=== PATIENT | male | born 1925 | race Caucasian/White ===

== ENCOUNTER 2017-01-07 16:48 | Emergency (ER) | payer MEDICARE ==
[~2017-01-07] VITALS: Ht 175.3 cm; Wt 71.4 kg
[~2017-01-07 16:48] MED LIST: ALBU8.5H2 INHALATION; ASPI-973 PO; FERR325C PO; FINA5TAB9 PO; INSU100I13 SUBQ; LEVO175T5 PO; OMEP20CA11 PO; TRAM50TA2 PO
[2017-01-07 16:52] VITALS: BP 148/68; PULSE 81; RESP 15; O2SAT 98
--- NOTE | 2017-01-07 17:00 | ED.REPORT ---
HPI-General Illness Date of Service Jan 07, 2017 ED Provider: Dolores Tello MD A deaf, demented 89 year old male with a history of diabetes, arthritis, asthma , GERD, 3 herniated discs, chronic back pain, presents to the ED complaining of possible UTI. Per nurse, the patient's reports that the patient has prostate enlargement and has been urinating frequently. The talked with a consulting nurse who told her that the patient was too far into trouble to be treated at a walk-in clinic, and needed emergency treatment. Per , the patient often complains about their chronic pain and talks about stories that are not true and has recently been talking about witches. Recently, he has been complaining about his chronic pain a lot. The patient recently asked to have a whole body XRay because of the intensity of his chronic pain. The patient has 3 herniated discs and has been told by doctors that here are not treatments available for them. Surgical history includes appendectomy, shoulder surgery, and cancerous lump removal from neck. Patient is also accompanied by daughter and son-in-law. Patient's demented state makes history intake difficult. Nursing Notes Stated Complaint: DEMENTIA Chief Complaint: General Complaint Nursing Notes Reviewed: Yes Allergies: Coded Allergies: Penicillins (Verified Allergy, Unknown, 12/15/15) Sulfa (Sulfonamide Antibiotics) (Verified Allergy, Unknown, 12/15/15) Scheduled Albuterol HFA (Proair HFA) 8.5 Gm Hfa.aer.ad 2 PUFFS INHALATION Q4H Aspirin (Aspirin) 81 Mg Tablet 81 MG PO DAILY Ferrous Sulfate (Iron) 325 Mg Capsule.er 325 MG PO DAILY Finasteride (Finasteride) 5 Mg Tablet 5 MG PO DAILY Insulin Glargine (Lantus U100 Solostar Insulin Pen) 100 Unit/1 Ml Insuln.pen 17 UNIT SUBQ HS Levothyroxine (Levothyroxine) 175 Mcg Tablet 175 MCG PO DAILY Omeprazole (Omeprazole) 20 Mg Capsule.dr 20 MG PO DAILY Scheduled PRN Tramadol (Tramadol) 50 Mg Tablet 50 MG PO BID PRN PRN For Pain General Time Seen by MD: 16:59 Chief Complaint Other (Possible UTI) Hx Obtained From: Patient, Spouse Arrived By: Walk-in Sudden in Onset?: No Onset Occurred: Onset unknown Symptom Duration: Since onset Severity: Current: Moderate Severity: Maximum: Moderate Recent Healthcare: No recent doctor visit Similar Sx Previous: No Past Medical History Past Medical History CVA, possibly per spouse. Chronic back pain. arthritis. 3 herniated discs. Reports: Asthma (occupational exposure to asbestos), Diabetes mellitus, GERD Past Surgical History Shoulder surgery. cancerous lump removed from neck. Colonoscopy 12/16/2015, 01/03/2016. Esophagogastroduodenoscopy 12/15/2015. Reports: Appendectomy Smoking History Never Smoker Review of Systems Chronic pain. Possible UTI. Complete sys rev & neg: except as marked. Physical Exam Vital Signs Vital Signs Date Time Temp Pulse Resp B/P Pulse Ox O2 Delivery O2 Flow Rate FiO2 01/07/17 16:52 36.8 81 15 148/68 98 Room Air Initial VS: Reviewed General/Constitutional: Awake Patient has paranoid delusions and is very hard of hearing. Head / Eyes: Atraumatic, Normocephalic, PERRL, EOMI ENT: Atraumatic, Mucous membranes moist Neck: Atraumatic, Full range of motion Respiratory / Chest: Atraumatic, Breath sounds NL, Breath sounds = bilat, No respiratory distress Cardiovascular: Heart rate NL, Regular rhythm, Heart sounds NL, No gallop, No murmurs, No rubs Abdomen: Atraumatic, Soft Back: Atraumatic, Full range of motion Upper Extremities Upper Extremity / MS: Atraumatic, Full range of motion Wrist / Hand: Atraumatic, Full range of motion Lower Extremity / Pelvis / MS: Atraumatic, Full range of motion Skin: Warm, Dry, No swelling less than 100 cc post void residual. Neurologic: Oriented X3, Speech NL Nuerologically intact apart from dementia. Interpretation & Diagnostics Lab Results Interpretation Result Diagram: 01/07/17 1830 01/07/17 1830 Test 01/07/17 17:55 01/07/17 18:30 Hold Urine Received (Received) White Blood Count 6.0th/mm3 (3.8-10.1) Red Blood Count 3.14mil/mm3 (4.40-5.80) Hemoglobin 9.5g/dL (13.8-17.2) Hematocrit 28.8% (41.0-50.0) Mean Corpuscular Volume 91.7fL (81-100) Mean Corpuscular Hemoglobin 30.3pg (27.0-35.0) Mean Corpuscular Hemoglobin Concent 33.0% (32.0-37.0) Red Cell Distribution Width 13.8% (12.3-15.4) Platelet Count 215bil/L (150-400) Neutrophils (%) (Auto) 63.2% (40-74) Lymphocytes (%) (Auto) 24.3% (14-46) Monocytes (%) (Auto) 8.1% (4-12) Eosinophils (%) (Auto) 3.6% (0-5) Basophils (%) (Auto) 0.5% (0-3) Sodium Level 136mEq/L (134-144) Potassium Level 4.2mEq/L (3.5-5.2) Chloride Level 101mEq/L (97-108) Carbon Dioxide Level 21mmol/L (18-29) Blood Urea Nitrogen 23mg/dL (8-27) Creatinine 1.24mg/dL (0.76-1.27) Estimat Glomerular Filtration Rate 58mL/min (>59) Glucose Level 161mg/dL (60-99) Calcium Level 8.9mg/dL (8.5-10.1) Total Bilirubin 0.2mg/dL (0.0-1.2) Aspartate Amino Transf (AST/SGOT) 16U/L (0-50) Alanine Aminotransferase (ALT/SGPT) 12U/L (0-44) Alkaline Phosphatase 78U/L (25-160) Total Protein 6.2g/dL (6.4-8.4) Albumin 4.0g/dL (3.4-5.0) Hold Concepcion Top Tube Received (Received) Lab Results Interpretation: Normal Urine Dipstick. H & H on 07/30/16 was 35.5. Re-Eval/Medical Decision Source of Hx: Old records Time of Eval: 19:36 Re-Evaluation/Progress Note: Rechecked patient. Per , he now reports that he has pain that travels to his navel. Explained test results, diagnosis, and plan for discharge. Patient understands and agrees with the plan. Counseled Regarding: Diagnosis, Lab results, Need for follow-up, When/why to return to ED Discharge & Departure Primary Impression: Dementia Additional Impression: Anemia Ruled Out: UTI (urinary tract infection), Bladder calculi Disposition: Home Discharge Condition All VS Reviewed: Yes Condition: Improved I did not find any concerning findings with workup today. Labs showed some anemia without signs of active bleeding. This seems to be chronic. There were no signs of infection. Urine showed no indication of infection or blood to suggest there might be a stone. Physical exam and ultrasound after voiding suggests no urinary retention or overflow incontinence problems (like you would see with a bit prostate when you can't empty your bladder all the way) At this time, I think that today's concerns or simply a bad day with Mani's dementia rather than an acute medical issue. Please follow up with Dr. Segura. Thank you for letting us evaluate you today. Referrals: Gunner Segura DO (PCP) Laura Attestation Portions of this note were transcribed by Luis Armando Deng. I, Dr. Tello personally performed the history, physical exam and medical decision-making; I reviewed and confirmed the accuracy of the information in the transcribed note. Signed by: Laura Haines, 01/07/20172013. copies to: Gunner Segura Shawna L MD Jan 07, 2017 17:00 Luis Armando Deng Jan 07, 2017 17:12
[2017-01-07 18:47] LABS: BASOPHILS % (AUTO) 0.5 % (0-3); EOSINOPHILS % (AUTO) 3.6 % (0-5); MONOCYTES % (AUTO) 8.1 % (4-12); Mean Corpuscular Hemoglobin 30.3 pg (27.0-35.0); Mean Corpuscular Volume 91.7 fL (81-100); NEUTROPHILS % (AUTO) 63.2 % (40-74); Platelet Count 215 bil/L (150-400)
== END 2017-01-07 19:55 | disposition home or self-care (01) ==
LOC: SED 16:48
DX: F03.90 Unspecified dementia, unspecified severity, without behavioral disturbance, psychotic disturbance, mood disturbance, and anxiety (principal); D64.9 Anemia, unspecified; E11.9 Type 2 diabetes mellitus without complications; J45.909 Unspecified asthma, uncomplicated; K21.9 Gastro-esophageal reflux disease without esophagitis; Z88.0 Allergy status to penicillin; Z88.2 Allergy status to sulfonamides; Z79.82 Long term (current) use of aspirin; Z79.4 Long term (current) use of insulin

== ENCOUNTER 2017-01-18 23:58 | Observation (INO) | payer MEDICARE ==
[~2017-01-18] VITALS: Ht 175.3 cm; Wt 72.5 kg
[2017-01-18 23:59] VITALS: BP 140/60; PULSE 72; RESP 24; O2SAT 97
[2017-01-19] VITALS (7 sets, daily range): BP systolic 130–187; BP diastolic 60–78; PULSE 58–73; RESP 16–24; O2SAT 97–99
--- NOTE | 2017-01-19 00:33 | ED.REPORT ---
HPI-Altered Mental Status Date of Service Jan 19, 2017 ED Provider: Toño Troy MD A demented 89 year old male with a history of diabetes and alcoholism is presented to the ED with suicidal ideations. He is accompanied by his , daughter, and son-in-law. The patient reports that he does not know why he was brought to the ED. Per , the patient has been talking about killing himself , this morning stating that he wanted to kill himself. He has been saying at home that he will stop eating. He has also had intermittent episodes of not eating. Yesterday, the patient stayed in bed until 1900. The patient has access to knives at his bedside which is for protection but there are no firearms in the house and the patient has not talked about using firearms. The patient can get angry and can shout but has never threatened or physically harmed his . The patient performs his own insulin injections at home with his watching. The son-in-law is concerned that the patient might use his insulin injections to kill himself. Patient is paranoid about someone trying to kill him. The only thing found in his pockets is his medical card. The son-in-law states that "She [patient's ] can't handle him at home anymore" Nursing Notes Stated Complaint: DEMENTIA/ SUICIDAL Chief Complaint: Psychiatric Complaint Nursing Notes Reviewed: Yes Allergies: Coded Allergies: Penicillins (Verified Allergy, Unknown, 01/19/17) Sulfa (Sulfonamide Antibiotics) (Verified Allergy, Unknown, 01/19/17) Scheduled Albuterol HFA (Proair HFA) 8.5 Gm Hfa.aer.ad 2 PUFFS INHALATION Q4H Aspirin (Aspirin) 81 Mg Tablet 81 MG PO DAILY Cholecalciferol (Vitamin D3) (Vitamin D3) 1,000 Unit Tab.chew 1,000 UNIT PO DAILY Donepezil (Aricept) 5 Mg Tablet 5 MG PO HS Ferrous Sulfate (Iron) 325 Mg Capsule.er 325 MG PO DAILY Finasteride (Finasteride) 5 Mg Tablet 5 MG PO DAILY Insulin Glargine (Lantus U100 Solostar Insulin Pen) 100 Unit/1 Ml Insuln.pen 26 UNIT SQ HS Insulin Lispro (HumaLOG U100 Insulin Pen) 100 Unit/1 Ml Insuln.pen 5 UNIT SUBQ ACHS Blood Sugar Lispro Correction <151 0 units 151-175 1 unit 176-200 2 units 201-225 3 units 226-250 4 units 251-275 5 units 276-300 6 units 301-325 7 units 326-350 8 units 351-375 9 units 376-400 10 units >400 12 units Check blood sugars before meals and at bedtime. Use correction factor only before meals. Levothyroxine (Levothyroxine) 175 Mcg Tablet 175 MCG PO DAILY Magnesium Chloride (Slow-Mag) 64 Mg Tablet 64 MG PO DAILY Metformin ER (Metformin ER) 500 Mg Tablet 500 MG PO DAILY Omeprazole (Omeprazole) 20 Mg Capsule.dr 20 MG PO DAILY Quetiapine Fumarate (Seroquel) 25 Mg Tablet 25 MG PO HS Tamsulosin (Flomax) 0.4 Mg Capsule 0.4 MG PO DAILY Scheduled PRN Ibuprofen (Ibuprofen) 200 Mg Capsule 200 MG PO QID PRN PRN For Pain General Time Seen by MD: 00:29 Chief Complaint Other (suicidal ideation) Hx Obtained From: Patient, Spouse, Daughter, Other family... (son-in-law) Arrived By: Walk-in Sudden in Onset?: No Onset Occurred: Onset unknown Symptom Duration: Duration unknown Severity: Current: No pain currently Severity: Maximum: No pain Recent Healthcare: Recent doctor visit (visited ED 01/07/2017) Similar Sx Previous: No Past Medical History Past Medical History Notes: Dr. Segura is PCP. Psychiatrist is through [facility]. Past Medical History CVA, possibly per spouse. Chronic back pain. arthritis. 3 herniated discs. At first psychological concern in the past, he started showing signs of dementia, but had no suicidal ideations. Reports: Asthma, Diabetes mellitus, GERD Past Surgical History Shoulder surgery. cancerous lump removed from neck. Colonoscopy 12/16/2015, 01/03/2016. Esophagogastroduodenoscopy 12/15/2015. Reports: Appendectomy Smoking History Never Smoker Social History Recovering alcoholic. Got to the point that he almost . Was hospitalized in [facility] for one week. Had relapse a few years ago. Ambulatory Status Cane Review of Systems Unable to Obtain ROS Mental status (patient is demented) Physical Exam Initial Vital Signs Vital Signs (First) Date Time Temp Pulse Resp B/P Pulse Ox O2 Delivery O2 Flow Rate FiO2 01/18/17 23:59 36.5 72 24 140/60 97 Room Air Initial VS: Reviewed, Vital signs normal General/Constitutional: Awake Patient is hard of hearing. Head / Eyes: Atraumatic, Normocephalic, PERRL, EOMI Neck: No JVD Respiratory / Chest: Atraumatic, Breath sounds NL, Breath sounds = bilat, No respiratory distress, No rales, No rhonchi, No wheezing Cardiovascular: Heart rate NL, Regular rhythm, Heart sounds NL, No gallop, No murmurs, No rubs No peripheral edema. Neurologic: Speech NL Abdomen: Soft, Non-tender Skin: Color NL, No rash, Warm, Dry Abnormal Mood/Affect: Positive: Depressed, Flat affect Abnormal Thinking / Perception: Positive: Suicidal, no plan Patient is delusional and confabulates about his personal life history. Upper Extremity / MS: No swelling, No edema Interpretation & Diagnostics Interpretation & Diagnostics: Urinalysis is dipstick negative. Lab Results Interpretation Result Diagram: 01/19/17 0115 01/19/17 0115 Test 01/19/17 01:00 01/19/17 01:15 Urine Color Yellow (YELLOW) Urine Appearance Clear (CLEAR,HAZY) Urine pH 5.5 (5.0-8.0) Urine Specific [place] 1.020 (1.003-1.035) Urine Protein Negativemg/dL (NEG,TRACE) Urine Glucose (UA) Negativemg/dL (NEGATIVE) Urine Ketones Negativemg/dL (NEGATIVE) Urine Occult Blood Negative (NEGATIVE) Urine Nitrite Negative (NEGATIVE) Urine Bilirubin Negative (NEGATIVE) Urine Urobilinogen Normalmg/dL (NORMAL) Urine Leukocyte Esterase Negative (NEGATIVE) Urine RBC 0-2/hpf (0-2) Urine WBC 0-5/hpf (0-5) Urine Epithelial Cells Occasional/hpf (NONE-MOD) Urine Crystals None seen (NONE SEEN) Urine Bacteria Few/hpf (NONE-FEW) Urine Hyaline Casts Rare/lpf (NONE) Urine Granular Casts None seen (NONE SEEN) Urine Waxy Casts None seen (NONE SEEN) Urine Red Blood Cell Casts None seen (NONE SEEN) Urine White Blood Cell Casts None seen (NONE SEEN) Urine Mucus None seen (None Seen) Urine Trichomonas None seen (NONE SEEN) Urine Yeast None (NONE SEEN) Urinalysis Comment None Urine Culture Reflexed Not indicated Hold Urine Received (Received) White Blood Count 7.8th/mm3 (3.8-10.1) Red Blood Count 3.64mil/mm3 (4.40-5.80) Hemoglobin 11.3g/dL (13.8-17.2) Hematocrit 32.8% (41.0-50.0) Mean Corpuscular Volume 90.1fL (81-100) Mean Corpuscular Hemoglobin 31.0pg (27.0-35.0) Mean Corpuscular Hemoglobin Concent 34.5% (32.0-37.0) Red Cell Distribution Width 13.3% (12.3-15.4) Platelet Count 235bil/L (150-400) Neutrophils (%) (Auto) 60.2% (40-74) Lymphocytes (%) (Auto) 26.3% (14-46) Monocytes (%) (Auto) 9.1% (4-12) Eosinophils (%) (Auto) 3.8% (0-5) Basophils (%) (Auto) 0.5% (0-3) Sodium Level 134mEq/L (134-144) Potassium Level 4.0mEq/L (3.5-5.2) Chloride Level 99mEq/L (97-108) Carbon Dioxide Level 22mmol/L (18-29) Blood Urea Nitrogen 23mg/dL (8-27) Creatinine 0.88mg/dL (0.76-1.27) Estimat Glomerular Filtration Rate 87mL/min (>59) Glucose Level 221mg/dL (60-99) Calcium Level 9.1mg/dL (8.5-10.1) Total Bilirubin 0.3mg/dL (0.0-1.2) Aspartate Amino Transf (AST/SGOT) 16U/L (0-50) Alanine Aminotransferase (ALT/SGPT) 18U/L (0-44) Alkaline Phosphatase 91U/L (25-160) Total Protein 6.6g/dL (6.4-8.4) Albumin 4.2g/dL (3.4-5.0) Thyroid Stimulating Hormone (TSH) 0.808uIU/mL (0.450-4.500) Hold Concepcion Top Tube Received (Received) Acetaminophen Level 15.0ug/mL Rx (10-25) Alcohols 10mg/dL (0-10) Lab values outside NL range: no clinical significance. CT Head Interpretation IMPRESSION: No CT evidence of hemorrhage, mass, or acute infarct. Signed by Juan Ruiz M.D. 01/19/2017, 1084 Re-Eval/Medical Decision Med Decision/Clinical Course 89-year-old male with dementia and increasing concern about his behavior. He has paranoid delusions and multiple suicidal ideation. He is made phone calls to law enforcement. He sleeps with kitchen knives in his bed to protect himself. He also had 2 guns in the house which have been removed. He apparently has no pre-dementia history of paranoia or other mental problems. He cannot safely go home. Medical clearance was done in the emergency room. He will be admitted to the hospital for further evaluation, psychiatric consultation, and medication management of his current situation. Source of Hx: Old records Re-Evaluation/Progress #1: Time of Eval: 01:10 Re-Evaluation/Progress Note: Patient has 12 gauge shotgun at home with shells that don't match it and BB gun at home. Neither gun works. Re-Evaluation/Progress #2: Time of Eval: 03:19 Re-Evaluation/Progress Note: Rechecked patient to inquire from patient's family if the patient has had CT in the last year. Explained plan for admission. Patient and patient's family understand and agree with the plan. All questions addresssed. Consultation : Referral / Consult Name: Brian Lira MD Consulted With: Hospitalist Call Returned at: 02:55 Note: Discussed patient case with Dr. Lira who accepts patient admit. Counseled Regarding: Diagnosis, Lab results, Need for admission Patient Discharge & Departure Impression: Primary Impression: Dementia Dementia type: unspecified type Dementia behavioral disturbance: with behavioral disturbance Qualified Code: F03.91 - Unspecified dementia with behavioral disturbance Additional Impressions: Suicidal ideation Delusion Disposition: ADMITTED TO HOSPITAL Discharge Condition All VS Reviewed: Yes Condition: Stable Referrals: Gunner Segura DO (PCP) Laura Attestation Portions of this note were transcribed by Luis Armando Deng. I, Dr. Troy personally performed the history, physical exam and medical decision-making; I reviewed and confirmed the accuracy of the information in the transcribed note. Signed by: Laura Haines, 01/19/2017 and 2296. copies to: Gunner Segura Howard L MD Jan 19, 2017 00:33 Luis Armando Deng Jan 19, 2017 00:43
[2017-01-19 01:44] LABS: APPEARANCE,URINE CLEAR (CLEAR,HAZY); COLOR,URINE YELLOW (YELLOW); OCCULT BLOOD,URINE NEGATIVE (NEGATIVE); PH,URINE 5.5 (5.0-8.0)
[2017-01-19 01:44] LABS: BASOPHILS % (AUTO) 0.5 % (0-3); EOSINOPHILS % (AUTO) 3.8 % (0-5); MONOCYTES % (AUTO) 9.1 % (4-12); Mean Corpuscular Volume 90.1 fL (81-100); NEUTROPHILS % (AUTO) 60.2 % (40-74); Platelet Count 235 bil/L (150-400)
[2017-01-19 01:45] LABS: UROBILINOGEN,URINE NORMAL (NORMAL)
--- NOTE | 2017-01-19 03:47 | PCM.HPMED ---
Subjective Date of Service Jan 19, 2017 Primary Provider: Admitting Physician: Primary Care Physician: Gunner Segura DO Attending Physician: Admit Status: From the Emergency Department Chief Complaint: Dementia/suicidality History of Present Illness: This is a pleasant 89 Y/O M with Hx Type II diabetes on Lantus, regular insulin , and metformin his most recent A1c was 11, and remote hx of alcoholism since he was a teenager, quit EtOH 26 years ago after being hospitalized for acute liver failure and pancreatitis resulting in his diabetes. Patient reportedly drank for over 40 years, and started when he was a teenager. Patient has history of hypothyroidism. He presented to the ED with reports of suicidal ideations by his family who accompanied him today. Stated symptoms including paranoia, and angry verbal outbursts. The patient's , daughter, and son-in- law are present in the room at time of exam and were primary historians. The patient's reports the patient has been talking about killing himself. Patient's reports that she identified his dementia approximate 6 months ago when she found him on the bathroom floor spray painting his stools. Patient 's family states that the patient was afraid that someone was going to steal his stools. He reportedly has been saying at home that he will stop eating. Patient's reports that the patient has angry outbursts that are short-lived , but denies any history of physical abusiveness. Patient has never threatened others. The patient has access to knives at his bedside which is for protection. There are reportedly no firearms in the home. The patient performs his own regular insulin injections. For blood glucose greater than 300 he injects 5 units of regular insulin. His watches him inject his insulin. His is responsible for bringing him his Lantus at night. The son- in-law is concerned that the patient might use his insulin injections to kill himself. Patient is paranoid about someone trying to kill him. Patient's states she can no longer properly care for patient at home. He himself was able to answer certain specific questioning although is somewhat tangential in his answers. Patient was able to follow simple directions and commands during the physical exam. Mini-Mental status exam done at bedside was 21 out of 30 with points off for the year, season, date, as well as points off for serial sevens. Of note patient has had loose stools for the past 2 days. Family members denied fever, cough, recent illnesses, nausea, vomiting, abdominal pain , constipation, focal neurological signs, headache, syncope, slurred speech, vision changes. 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 Vital signs in the ED: Temperature 36.5, pulse 72, respiratory rate 24, blood pressure 140/60 with a map of 86, pulse ox 97. Hemogram showed white blood cell count 7.8, 60.2% neutrophils, H/H 11.3/32.8, platelet count 235, Chemistry panel showed: Glucose 221, sodium 134, potassium 4.0, chloride 99, carbon dioxide 22, BUN 23, creatinine 0.88, calcium 9.1, AST/ALT 16/18, alkaline phosphatase 91, albumin 4.2, TSH 0.808 UA showed bacteria otherwise negative Urine toxicology showed acetaminophen 15, EtOH 10 which is consistent with a blood alcohol level of 0.08%. In the ED, CT head was performed, and results are pending. Urine tox in the ED was negative Review of Systems: A comprehensive review of systems was conducted and was negative except as mentioned in history of present illness. Allergies Coded Allergies: Penicillins (Verified Allergy, Unknown, 01/19/17) Sulfa (Sulfonamide Antibiotics) (Verified Allergy, Unknown, 01/19/17) Home Medications Albuterol HFA (Proair HFA) 8.5 Gm Hfa.aer.ad 2 PUFFS INHALATION Q4H Aspirin (Aspirin) 81 Mg Tablet 81 MG PO DAILY Ferrous Sulfate (Iron) 325 Mg Capsule.er 325 MG PO DAILY Finasteride (Finasteride) 5 Mg Tablet 5 MG PO DAILY Insulin Glargine (Lantus U100 Solostar Insulin Pen) 100 Unit/1 Ml Insuln.pen 26 UNIT SUBQ HS Regular insulin takes 5 units for blood glucoses greater than or equal to 300 Levothyroxine (Levothyroxine) 175 Mcg Tablet 175 MCG PO DAILY Omeprazole (Omeprazole) 20 Mg Capsule. 20 MG PO DAILY Donepezil for dementia this drug has not been reconciled Tamsulosin 0.4 mg daily Seroquel 25 mg daily at bedtime Metformin 500 mg XL once daily Magnesium chloride daily Vitamin D [address] Segura is PCP. Psychiatrist is through [facility]. CVA, possibly per spouse. Chronic back pain. arthritis. 3 herniated discs. At first psychological concern in the past, he started showing signs of dementia , but had no suicidal ideations. Asthma, Diabetes mellitus, GERD Surgical History Right Shoulder surgery. cancerous lump removed from right side neck. Colonoscopy 12/16/2015, 01/03/2016. Esophagogastroduodenoscopy 12/15/2015. Appendectomy Family History Noncontributory Social History Hx Alcohol Use: Yes (patient quit 26 years ago with one history of relapse a couple years ago.) Hx Substance Use: No Hx Tobacco Use: No Smoking Status: Never Smoker Living Arrangement: with Family (lives with his at home) Exam Vital Signs Vital Sign - Last Date Time Temp Pulse Resp B/P Pulse Ox O2 Delivery O2 Flow Rate FiO2 01/18/17 23:59 36.5 72 24 140/60 97 Room Air Exam General: HEENT: NC/AT, eyes, PERRLA, EOMI, neck, soft supple, no adenopathy, no JVD, no masses, no thyromegaly, throat mucous membranes pink and moist/Dry, no erythema , no exudates, no tonsillar swelling, no uvular deviation. Lungs: CTAB all alonzo, no wheezes, no rhonchi, no crackles, no adventitious lung sounds, no use of accessory muscles of respiration, good air movement, good respiratory effort. Heart: Regular rate and rhythm, no murmur, S1-S2 present, no rub, no click, no distant heart sounds, Abdomen: Soft, nontender, nondistended, bowel sounds active, no rebound, no guarding, Genitourinary: No CVA tenderness, no suprapubic tenderness, no Gupta catheter, Extremities: Muscle strength, 5 out of 5 upper/lower extremity and symmetric laterally, reflexes 2 out of 4 upper/lower extremity and symmetric bilaterally, pulses equal and symmetric upper/lower extremity including radial and dorsalis pedis, no edema Neurologic: See neurologically intact, PT in full sentences, no focal neurological signs, [id number], [id number], no pronator drift, no hemineglect. Skin: Psychiatric: Mood is cheerful and mood and affect are congruent and appropriate. Lab and Diagnostics Result Diagram: 01/19/17 0115 01/19/17 011 X-Rays, CTs and MRIs CT of head is pending Assessment & Plan This is an 89-year-old male with history diabetes 2, alcoholism, dementia, and hypothyroidism who presented to the ED with family secondary to suicidal ideation. Patient was admitted to the hospital secondary to possible danger to himself and secondary to severe dementia possibly Wernicke's encephalopathy. # Possible Wernicke's encephalopathy, in a known alcoholic, present on admission, active -Patient is a known alcoholic -EtOH level was 10 consistent with blood alcohol of 0.08% -Urine tox was negative -Thiamine 500 mg 3 times a day 2 days, followed by 250 mg IV daily for additional 5 days - UA showed few bacteria otherwise negative UA - CT head was performed, and results are pending. # Suicidal ideation, present admission, active -Patient was admitted to the hospital secondary to severe suicidal ideation and making threats to harm himself. -She lives at home with his . Patient's stating she can no longer cope with taking care of her . -orchard worker consult in the a.m. # Dementia, chronic, present admission, active -Results of Mini-Mental status exam are as follows: 21 out of 30 with points off for not knowing the year, season, date, as well as points off for serial sevens. -Patient's first signs of dementia at the time patient first psychological concerns became evident -EKG ordered and pending -UA showed few bacteria otherwise negative UA -We will continue patient's home medication quetiapine 25 mg daily at bedtime -Continue outpatient medication Aricept this medication has not been reconciled -We will continue outpatient medication quetiapine at 25 mg daily at bedtime if EKG returns with no QTC prolongation # Hyperglycemia, in a known type II diabetic, present on admission, active -Glucose 221 - As recent hemoglobin A1c was 11 -hemoglobin A1c ordered and pending -Patient takes regular insulin 5 units for blood glucose is greater than or equal to 300. -We will continue home dose Lantus U1 100 patient takes 26 units subcutaneous at bedtime -We will hold metformin -Low-dose correctional scale insulin # Anemia normocytic normochromic, chronicity unknown, present on admission, active -H/H 11.3/32.8 -We will continue home iron 325 mg capsules daily # Hypothyroidism, chronic, -We will continue levothyroxine 175 g daily # GERD, chronic, -We will continue omeprazole 20 mg daily # Asthma, chronic -We will continue albuterol 8.5 g p metered-dose inhaler # BPH -Continue tamsulosin 0.4 mg daily -And T new finasteride 5 mg daily Disposition: Admitted to in patient service with expected length of stay greater than 2 days, secondary to severity of presenting symptoms, treatment plan, complexity of clinical work up, and risk of adverse events. CODE STATUS: Full code PCP: Gunner Segura DVT PE prophylaxis: Enoxiparin Contact: VTE Prophylaxis: Sub-Q Enoxaparin Resuscitation Status: CPR: Attempt Resuscitation Attending Statement The patient was seen and examined together with Dr. Jackson on01/19/2017 and I agree with the history, exam and plan as outlined in the note above. Sriram Jackson DO Jan 19, 2017 03:47 Brian Lira MD Jan 19, 2017 06:11
[2017-01-19] MEDS ORDERED: Ondansetron 2 mg/mL 2 mL Inj IVPUSH PRN ×2 (04:50→05:05)
[2017-01-19] MEDS ORDERED: Alum-Mag Hydrox-Simeth 30 mL Suspension PO PRN ×2 (04:50→05:05)
[2017-01-19] MEDS ORDERED: Glucose 40% Oral Gel 15 Gm Tube PO PRN (05:00)
[2017-01-19] MEDS ORDERED: Polyethylene Glycol (PEG) 17 Gm Powder PO PRN (05:05)
[2017-01-19] MEDS ORDERED: INSU100I13 SQ (05:58)
[2017-01-19] MEDS ORDERED: DONE5TAB4 PO (06:00)
[2017-01-19] MEDS ORDERED: TAMS0.4C98 PO (06:00)
[2017-01-19] MEDS ORDERED: METF-495 PO (06:00)
[2017-01-19] MEDS ORDERED: QUET25TA PO (06:00)
--- NOTE | 2017-01-19 06:15 | NUR ---
Admit Note Received a phone reports from ED at 0400, Patient Admitted due to suicidal ideation and dementia, arrived to unit at 0530 via gurney accompanied by ED staff and significant others, alert and verbal, able to ambulate to bed with cane and 1 Person SBA, calm and pleasant, no aggressive behaviors or suicidal thoughts observes during initial assessment, oriented to rm and call light, romeo alarm in placed, no discomfort voiced at this time, closely monitored, provide safe environment, call light in reach and all needs attended.
[2017-01-19] MEDS ORDERED: IBUP200C PO (06:20)
[2017-01-19] MEDS ORDERED: INSU100I18 SUBQ (06:20)
[2017-01-19] MEDS ORDERED: CHOL10008 PO (06:20)
[2017-01-19] MEDS ORDERED: SLO64 PO (06:20)
[2017-01-19] MEDS: Insulin LISPRO 300 Unit/3 mL Inj SUBQ SCH ×4 (08:00→21:46)
--- NOTE | 2017-01-19 08:15 | NUR ---
IV Access/IV Thiamine Contacted Dr. Solorzano with the following cook page: Patient did not get ordered IV Thiamine at 0430 due to no IV access, unsure why IV access not started in ER, patient family asking if this med can be given PO. Thank you. Elena [facility] [id number]
[2017-01-19] MEDS ORDERED: Thiamine 100 mg/mL 2 mL Inj IM ONE (08:20)
--- NOTE | 2017-01-19 08:25 | DRSVH ---
PROCEDURE: CT BRAIN WITHOUT CONTRAST ([id number]) INDICATIONS: confusion, paranoia TECHNIQUE: Noncontrast 4.5 mm thick angled axial sections acquired from the foramen magnum to the vertex, with c oronal reformats. COMPARISON: None. FINDINGS: Image quality: Excellent. CSF spaces: Basal cisterns are patent. No extra-axial fluid collections. The ventricles are symmet taniya in size and shape. Brain: No intracranial bleeds or masses. There is cerebral volume loss for age, with resultant vent ricular and sulcal prominence. There are periventricular and deep white matter chronic small vessel ischemic changes. There is intracranial internal carotid artery atherosclerosis. Skull and face: Calvarium and visualized facial bones appear intact, without suspicious lesions. Sinuses: Visualized sinuses and mastoids are clear. IMPRESSION: 1. No acute intracranial abnormality is seen. 2. Moderate atrophic change and atherosclerosis are present. Dictated by: Mani Yañez M.D. on 01/19/2017 at 8:23 this report corresponds to the findings of the preliminary NSR report. Approved by: Mani Yañez M.D. on 01/19/2017 at 8:24
--- NOTE | 2017-01-19 09:46 | NUR ---
Social Work: Initial Assessment/Mental Health Assessment Data: Per EMR review, pt is an 89 year old male admitted for dementia, delusional. Pt is Group [facility] Medicare; pt has no LTC insurance or VA benefits. PCP is Gunner Segura DO. NOK is Leanna Salazar, , . Advanced directives not completed- pt with advanced dementia and not appropriate to receive information. Readmit score not entered at this time. Current Situation: REAL ESTATE VALUER met with pt and family at bedside. Sw role explained and contact information provided. See initial assessment. Pt was diagnosed with dementia in March/April of 2016. Pt was brought to [facility] ED by his family after the pt refused to get OOB or eat yesterday. Family states that the pt was saying that "I just as soon commit suicide" when asked to get out of bed. They report that the pt experiences chronic pain in his back which is inoperable. They believe that his pain and his advancing dementia were the contributing factors to his statements about suicide. Pt did not report having a plan to commit suicide. REAL ESTATE VALUER questioned pt about his statement about suicide and the events surrounding his admission. Pt declined any current thoughts of suicide and did not remember making any of these comments. Current Mental Status: Pt is only oriented to self and does not recall the circumstances surrounding his admission or where he is currently. Pt is very friendly and cooperative with REAL ESTATE VALUER engagement. Pt laying supine in bed, dressed in hospital gowns. Pt struggles with word searching and used the words "[place]" when asked where he is at. Pt denies any current suicidal ideation or intent to self-harm self or others. Pt's family states pt has experienced paranoia and believes the police and FBI are tracking him. This began after his diagnosis of dementia. Family reports that pt spends 18-20 hours in bed and only gets OOB to ambulate to the bathroom or to the kitchen in the middle of the night. Past MH History: Family reports pt was placed on a 72 hour hold in October due to suicidal ideation however the hold was dropped after 48 hours as pt was no longer suicidal and not appropriate for hospitalization. They state that the providers believed that his suicidal ideation was secondary to his dementia. Pt was discharged home with Lorazapakristine and follow up with psychiatrist through [facility]. Pt's family cannot remember which psychiatrist the pt sees. Per [facility] check this information is correct; they do not have a listed outpatient psychiatrist for the pt. CD History: Pt has a history of ETOH use; family states that the pt has not consumed alcohol for 4-5 years. During admission pt had a PAM level of .08. Family does not know how this could be as there is no ETOH in the house. Risk Assessment: Pt lives at home with his and family provides 24/7 care and support. Pt is not safe to be alone and has several accidents with burning food and placing things on the stove that were not safe. All of the pt's firearms have been removed from the home. Pt still manages his own insulin which is concerning to family. REAL ESTATE VALUER discussed having a family member take over administering medications and obtaining a lock box to store medications. Family also states that pt wakes in the middle of the night and this is when he has accidents with cooking. REAL ESTATE VALUER discussed getting a bed alarm for the pt so that family would be alerted when he gets OOB. Disposition/Plan: Family is interested in finding placement for the pt and have the ability to pay privately. They state that the pt is I with ambulation. REAL ESTATE VALUER observed pt to require staff readiness officer to assist pt to get OOB. Pt appeared steady with FWW SBA however pt will need PT evaluation to assess for appropriate level of care. REAL ESTATE VALUER discussed case with who agrees with plan to complete PT Eval and place pt for increasing dementia needs; suicidal ideation appears to be secondary to disease and aging process and pt's chronic pain. Pt is not currently endorsing suicidal ideation and does not remember making the suicidal comments. REAL ESTATE VALUER has placed phone calls to Assisted Living Facilities in [facility] to obtain Respite Rates. REAL ESTATE VALUER spoke with Consuelo at [facility] in [place] ([phone]) she states that they have a studio room ($154/day) and a one bedroom ($178/day) room available for Respite. She states that they would be able to accept the pt even being a 2 person assist out of bed and that they have no immediate concerns about the pt's dementia with secondary suicidal ideation. She would be able to complete an admit over the weekend and would need clinicals faxed to ([phone]) prior to official acceptance. REAL ESTATE VALUER will update the family regarding this information after PT Evaluation. REAL ESTATE VALUER has alerted PT that an evaluation has been placed and requested pt be made high-priority. SOPHIE Kwan Addendum: 01/19/17 at 1107 by NAREN HADDAD SS Amended: Links added. Addendum: 01/19/17 at 1457 by NAREN HADDAD SS REAL ESTATE VALUER met with the pt's DIL, a former DMHP, Kimberlyn Salazar, to discuss the concerns of the pt's children. Per the DIL, the pt has been decompensating slowly over the last 2-3 years, intermittently struggling with memory issues. In the last year, they have noticed the pt's behaviors shift stating "he is psychotic." They state that the pt's has become "delusional" with obsessive thoughts about the family members stealing from him, conspiring against him and having paranoid thinking patterns. She states that they first noticed something was wrong when the pt went around the house marking items with red spray paint that he claimed were his. The pt has also taken many of his prized possessions (tools and shop items) and is hoarding them in his bedroom, fearful of them being stollen. The pt has been found hiding knives in his room and has made repeated comments to family that he has guns stashed in places throughout his property. Pt's DIL states that the pt's is an unreliable source of information and should not be considered a safe discharge option for the pt. They state that she has minimized the pt's changing cognition and has refused to remove dangerous items and safety proof the home (removing weapons/block of knives, locking medications and unplugging the stove). Family is not sure what to do with the pt. They would ideally like him placed at a rehana-psych facility for further management and evaluation. DIL states that a conflict with the pt's court date and the fact that she could not attend his court session was the main reason his hold was lifted. They also state that the pt had a bed at [facility] however because the pt was unwilling to go voluntarily, he was discharged home. At this time, the family is willing to consider an assisted living facility if the pt is not a candidate for [facility]. REAL ESTATE VALUER has staffed the case with and provided him with updates. REAL ESTATE VALUER has requested a psychiatry consult for cognitive assessment and assist hospitalist with determining decisional capacity of the pt. REAL ESTATE VALUER has left a message for the attending psychiatrist however he will not be able to see the pt today, director of community center states that psych will likely see the pt tomorrow afternoon. REAL ESTATE VALUER has requested medical records [facility] mental health unit from his stay in October. REAL ESTATE VALUER will provide copy of these records to psychiatry. Pt was able to ambulate 100 feet with PT using two canes/walking sticks. PT manishal also referenced concerns regarding pt's cognitive status and safety awareness in regards to ambulation. Addendum: 01/19/17 at 1458 by NAREN HADDAD SS GAVINO Bryson, ([phone])
--- NOTE | 2017-01-19 10:30 | NUR ---
Morning Rounds Staffed patient's case with Dr. Solorzano and case management. Dr. Solorzano stated he will change route of Thiamine to IM, he also stated he will order a PT consult. Case management stated working on possible SNF placement vs respite or possibly discharge home based on the PT eval. No plan for discharge at this time.
--- NOTE | 2017-01-19 12:10 | NUR ---
PT eval/Thiamine IM Contacted Dr. Solorzano with the following cook page: PT eval not ordered yet, social media developer wanted recommendation from PT prior to further placement planning. Also, Thiamine needs to be changed to IM from IV per rounds discussion. Thank you. Elena [facility] [id number]
--- NOTE | 2017-01-19 13:40 | NUR ---
Evaluation completed. Please go to "Notes" then click on "Assessments and Notes" (bottom left corner of screen). Then select appropriate discipline tab on top of screen.
--- NOTE | 2017-01-19 15:27 | NUR ---
Thiamine Order Paged Dr. Solorzano at [phone], he gave verbal order for Thiamine 500mg IM q 8h, he also stated he would continue patient's Seroquel and Aricept.
[2017-01-19] MEDS ORDERED: Thiamine 100 mg/mL 2 mL Inj IM SCH (16:30)
[2017-01-20 02:00] VITALS: BP 150/63; PULSE 72; RESP 16; O2SAT 98
--- NOTE | 2017-01-20 05:39 | NUR ---
Shift Note Assumed pt care at 1900, pt continues with close observation for reported suicidal ideation per family members upon admit, pt has no verbalizations/actuations of any suicidal intent/plan, noted pt with baseline confusion,noted pt verbally inappropriate to staff, easily re directable, able to start IV access 20g on RFA, IM thiamine dose switched to IV per Dr. García, 0430 am dose given, pt has not attempted to pull access out, protective romeo sleeve on, pt on romeo bed alarm for safety, pt placed on room across nursing station for maximum visibility, call light in reach.
[2017-01-20 05:52] VITALS: BP 133/72; PULSE 66; RESP 17; O2SAT 95
[2017-01-20 08:08] VITALS: BP 127/70; PULSE 68; RESP 16; O2SAT 96
[2017-01-20] MEDS: Insulin LISPRO 300 Unit/3 mL Inj SUBQ SCH ×4 (08:14→22:04)
--- NOTE | 2017-01-20 09:57 | PCM.PNMED ---
Subjective Date of Service Jan 20, 2017 Subjective no overnight event, patient doesn't have complaints Exam Vital Signs Vital Sign - Last Date Time Temp Pulse Resp B/P Pulse Ox O2 Delivery O2 Flow Rate FiO2 01/20/17 08:08 36.6 68 16 127/70 96 Room Air Intake and Output 01/19/17 01/19/17 01/20/17 Cumulative From/Thru 15:00 23:00 07:00 01/18/17 23:59 - 01/20/17 05:52 Intake Total 700 ml 650 ml 1590 ml Output Total 850 ml 1900 ml 2750 ml Balance -150 ml -1250 ml -1160 ml Intake Oral 700 ml 400 ml 1340 ml IV Total 0 ml 250 ml 250 ml Output Urine Total 850 ml 1900 ml 2750 ml # Voids 1 # Bowel Movements 1 1 Exam NAD, comfortably laying down on the bed no JVD, MMM, no LAD RRR, nl s1, s2 no mrg CTAB, no w,c S,ND,NT,normoactive BS+ warm, no edema, pulses 2/2 IVs and Medications Medications Reviewed: Medications were reviewed in detail Lab and Diagnostics Result Diagram: 01/19/1711401/19/17114 X-Rays, CTs and MRIs CT of head is pending Assessment & Plan This is an 89-year-old male with history diabetes 2, alcoholism, dementia, and hypothyroidism who presented to the ED with family secondary to suicidal ideation. Patient was admitted to the hospital secondary to possible danger to himself and secondary to severe dementia possibly Wernicke's encephalopathy. acute, active #progressive worsening of cognitive dysfunction,ddx:most likely worsening dementia, Wernicke's encephalopathy in a known alcoholic, POA. TFT WNL, no signs of WD, no nystagmus. CTH neg. UTOX neg. remained no SI -awaits RPR, vitB12 level. -neurocheck q4h -continue Thiamine despite low suspicion for Wernicke's -We will continue patient's home medication quetiapine 25 mg daily at bedtime -Continue outpatient medication Aricept this medication has not been reconciled -We will continue outpatient medication quetiapine at 25 mg daily at bedtime if EKG returns with no QTC prolongation -requested Psychiatrist eval to see decisional capacity # Hyperglycemia, in a known type II diabetic, POA, Glucose 221 on adm, recent reported a1c 11 -will do insulin 10unit, lisproSS, chronic, stable # Anemia normocytic normochromic, chronicity unknown, POA, H/H 11.3/32.8 -We will continue home iron 325 mg capsules daily # Hypothyroidism, chronic, -We will continue levothyroxine 175 g daily # GERD, chronic, -We will continue omeprazole 20 mg daily # Asthma, chronic -We will continue albuterol 8.5 g p metered-dose inhaler # BPH -Continue tamsulosin 0.4 mg daily -And T new finasteride 5 mg daily Disposition: likely tomorrow, assisted facility CODE STATUS: Full code PCP: Gunner Segura DVT PE prophylaxis: Enoxiparin Contact: VTE Prophylaxis: Sub-Q Enoxaparin Resuscitation Status: CPR: Attempt Resuscitation Time spent 35min Nixon Solorzano MD Jan 20, 2017 09:57
[2017-01-20 11:56] VITALS: BP 135/74; PULSE 70; RESP 16; O2SAT 97
[2017-01-20] MEDS: Insulin GLARgine 100 Unit/mL Syringe SUBQ SCH (12:04)
[2017-01-20 16:28] VITALS: BP 140/79; PULSE 68; RESP 16; O2SAT 97
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
--- NOTE | 2017-01-20 17:38 | NUR ---
Mentation patient alert to self. pleasant and cooperative today. denies any thought to harm self or other. per family, mentation is, "about normal". patient has been SBA to bedside and bathroom. unsteady on feet. continue to monitor.
--- NOTE | 2017-01-20 17:41 | NUR ---
Social Work: Continued Discharge Planning Data & Assessment: SW met with patient, patient's and patient's son-in-law at the bedside to discuss discharge planning. Patient's family requested that patient be referred to [facility]. Patient's family as aware that they will have to pay for patient to admit to [facility]'s manager long term care care unit. JOHN faxed patient's clinical to [facility] [phone] ph. [phone] and is waiting for answer. JOHN notified Dr. Rosales. SW will continue to follow and assist patient throughout stay. Plan: Patient is likely to discharge to [facility] manager long term care care unit if accepted. SW will continue to follow and assist patient throughout stay. Elizabeth Borges, MARK, ACM
[2017-01-20 20:00] VITALS: BP 121/85; PULSE 61; RESP 16; O2SAT 98
[2017-01-21] VITALS: BP 136/74; PULSE 70; RESP 16; O2SAT 98
--- NOTE | 2017-01-21 04:27 | NUR ---
Shift Note Pt. seroquel increased in dosage with good effect, able to have approx.6-7 hrs of sleep, has been appropriate with staff, no discomfort voiced this shift, no verbalization of suicidal plan, uses call light for help, romeo alarm for safety, qhourly rounds, call light in reach.
[2017-01-21 04:30] VITALS: BP 135/71; PULSE 69; RESP 16; O2SAT 98
[2017-01-21] MEDS ORDERED: DEXTROSE 5% IV SCH (08:30)
[2017-01-21] MEDS ORDERED: THIAMINE IV SCH (08:30)
--- NOTE | 2017-01-21 08:45 | NUR ---
Called Dee at [facility], she will look at referral this morning and call back. Let her know potential for private pay and they are family preference. Updated RNP
[2017-01-21] MEDS: Insulin GLARgine 100 Unit/mL Syringe SUBQ SCH (09:01)
[2017-01-21] MEDS: Insulin LISPRO 300 Unit/3 mL Inj SUBQ SCH ×4 (09:02→21:23)
--- NOTE | 2017-01-21 10:08 | NUR ---
[facility] has declined pt. Dinah Daniels,FISH HATCHERY MANAGER
--- NOTE | 2017-01-21 11:00 | NUR ---
Spoke with Sybil in admissions at [facility] and she had family come by today inquiring about admission. Gave access and faxed facesheet. Updated PRODUCT DEVELOPER Addendum: 01/21/17 at 1423 by GLADIS CARRIZALES CM [facility] can not accept patient, updated PRODUCT DEVELOPER
--- NOTE | 2017-01-21 11:14 | NUR ---
Social Work Note - Continued Discharge Planning: D/A: The Pt is an 89 y/o male that is now on day 2 of admission for dementia. JOHN informed that [facility] has declined. JOHN t/c from [facility] in [place] who is willing to accept the Pt and wanted to provide daily rate information. A studio would be $153/day and a one bedroom would be $178/day. JOHN t/c to the Pts spouse [phone] to provide update, spouse is currently waiting for an appointment and requested for SW to call back. SW will follow up with the Pts spouse this afternoon. SW will continue to follow. P: SW to follow up with Pts spouse this afternoon to further discuss discharge plan. SW will continue to follow. SOPHIE Schmidt Logistic Manager SOPHIE Morgan
--- NOTE | 2017-01-21 11:17 | NUR ---
Radial Drill Press Operator: Pt not oriented, unable to explain HERNANDEZ and Medicare Part D info. No family at bedside, TC to pt's Tona Dobson at 10:25 am at home. Explained HERNANDEZ and Medicare part D info, no questions at this time. Original HERNANDEZ placed on hard chart, copy left in room for spouse. Per Tona Dobson, believes arrangements being finalized for [facility]. Requests INFORMATION SYSTEMS SECURITY SPECIALIST contact her, but pt states going to medical appt and unavailable between [phone]. Notified INFORMATION SYSTEMS SECURITY SPECIALIST of spouse's request to call re: pt's disposition. AGUSTÍN Goodrich RN
--- NOTE | 2017-01-21 11:39 | NUR ---
Social Work-continued d/c planning: Data:EMR reviewed. Pt is on day 2 for dementia per H&P. PT has seen pt and ambulated 100ft. JOHN spoke with pt's son in Law Jan [phone] and cell [phone]. Jan states that has toured [facility] this morning and would like SW to send a referral to this facility. Jan states they have private funds to pay and this would turn into [facility] placement. SW asked Jan about memory care and assisted living. Jan states they have decided as a family that pt would need a higher level of care than this. Jan confirms he and pt's will be later this afternoon. JOHN called [facility] and spoke with Lizzy. UR Specialist sent referral. JOHN provided Lizzy with update, explained pt has been cleared psych and is not longing making suicidal statements. Psychiatry has started pt on medications. Lizzy to review referral and get back with JOHN. JOHN will continue to follow. Assessment:Pt who would benefit from placement. Plan:Referral has been sent to [facility]. JOHN will continue to follow. SOPHIE Morgan Addendum: 01/21/17 at 1632 by SHIRAZ MCDUFFIE SW spoke with pt's family at bedside. SW explained SW still waiting on an answer from [facility]. SW discussed options of memory care with family. Family to discuss and SW to check in tomorrow. Main personal care aid for family is Jan. Family has questions about Obs status, sw informed UR RN. JOHN will continue to follow. SOPHIE Morgan
--- NOTE | 2017-01-21 15:26 | PCM.PNMED ---
Subjective Date of Service Jan 21, 2017 Subjective Patient was seen and examined at bedside today. Patient denies any chest pain, shortness of breath, nausea, vomiting, diarrhea. Patient is pleasantly demented but is still currently oriented to self. Exam Vital Signs Vital Sign - Last Date Time Temp Pulse Resp B/P Pulse Ox O2 Delivery O2 Flow Rate FiO2 01/21/17 04:30 36.7 69 16 135/71 98 Room Air Intake and Output 01/20/17 01/20/17 01/21/17 Cumulative From/Thru 15:00 23:00 07:00 01/18/17 23:59 - 01/21/17 05:10 Intake Total 1628 ml 400 ml 3618 ml Output Total 775 ml 450 ml 3975 ml Balance 853 ml -50 ml -357 ml Intake Oral 1350 ml 400 ml 3090 ml IV Total 278 ml 528 ml Output Urine Total 775 ml 450 ml 3975 ml # Voids 1 2 # Bowel Movements 1 2 Exam Physical Exam: GEN: Patient was awake, alert, responding appropriately to questions HEENT: PERRLA, EOMI, Neck soft supple, trachea midline, nomocephalic/atraumatic CV: +S1/S2, RRR, no murmur auscultated Respiratory: CTAB, no wheezes, rales, rhonchi GI: +bowel sounds x4, soft, compressible, non TTP EXT: no c/c/e Neuro: CN II-XII grossly intact Psych: mood and affect were appropriate IVs and Medications Medications Reviewed: Medications were reviewed in detail Lab and Diagnostics Result Diagram: 01/19/1711401/19/17114 X-Rays, CTs and MRIs CT of head is pending Assessment & Plan This is an 89-year-old male with history diabetes 2, alcoholism, dementia, and hypothyroidism who presented to the ED with family secondary to suicidal ideation. Patient was admitted to the hospital secondary to possible danger to himself and secondary to severe dementia possibly Wernicke's encephalopathy. Altered mental status secondary to progressive worsening cognitive dysfunction -Continue thiamine (patient is a known alcoholic) low suspicion for Wernicke's -U tox negative -Donepezil 10 mg daily at bedtime as per recommendation by psychiatry -Increase Seroquel to 50 mg daily at bedtime as per recommendation by psychiatry -We will consider adding Namenda 5 mg daily as recommended by psychiatry if the patient continues to show behavioral problems -Currently working on dementia placement for patient Diabetes type II -Recent reported hemoglobin A1c of 11 -Continue insulin sliding scale and 10 units of insulin daily chronic, stable # Anemia normocytic normochromic, chronicity unknown, POA, H/H 11.3/32.8 -We will continue home iron 325 mg capsules daily # Hypothyroidism, chronic, -We will continue levothyroxine 175 g daily # GERD, chronic, -We will continue omeprazole 20 mg daily # Asthma, chronic -We will continue albuterol 8.5 g p metered-dose inhaler # BPH -Continue tamsulosin 0.4 mg daily -And T new finasteride 5 mg daily Disposition: Patient is currently clinically stable and his dementia seems to be under control and the patient does seem well-behaved. Currently we are awaiting placement for the patient as he will need to go to a dementia facility. VTE Prophylaxis: Sub-Q Enoxaparin Resuscitation Status: CPR: Attempt Resuscitation Time spent Greater than 35 minutes Jillian Carney DO Jan 21, 2017 15:26
--- NOTE | 2017-01-21 15:34 | NUR ---
Nasal congestion reporting pt c/o nasal congestion. Takes demetrius at home, per . MD notified, request made for rx. Also request made for DC observation of suicidal ideation. new orders received.
[2017-01-21 18:45] VITALS: BP 139/56; PULSE 69; RESP 20; O2SAT 98
--- NOTE | 2017-01-21 19:18 | NUR ---
mobility/behavior After dinner pt amb 2 full loops with FWW. tolerated well Pt cooperative with care. Followed directions. Up in chair for all meals. Pt had shower bed and chair alarm in place. Pt does get up at times without asking for assist.
[2017-01-21 22:02] VITALS: BP 143/63; PULSE 67; RESP 18; O2SAT 96
--- NOTE | 2017-01-22 03:49 | NUR ---
mentation/Activity pt A&O to self. pt was stating " there is strangers in [facility]" and asking this RN to close the doors. pleasant and cooperative with care. Pt ambulated two rounds in the hallway with FWW and SBA. Denies pain or discomfort until this time of the shift. continue to monitor.
[2017-01-22 07:00] VITALS: BP 134/63; PULSE 73; RESP 18; O2SAT 96
[2017-01-22] MEDS ORDERED: Thiamine 100 mg/mL 2 mL Inj IM SCH (08:30)
[2017-01-22 09:14] LABS: Vitamin B12 722 pg/mL (211-946)
--- NOTE | 2017-01-22 10:22 | NUR ---
Social Work-continued d/c planning: SW called son in law Jan and left message to further discuss placement for pt, awaiting a return call. SOPHIE Morgan
[2017-01-22] MEDS: Insulin GLARgine 100 Unit/mL Syringe SUBQ SCH (10:31)
[2017-01-22] MEDS: Insulin LISPRO 300 Unit/3 mL Inj SUBQ SCH ×4 (10:32→21:57)
[2017-01-22 10:59] VITALS: BP 127/53; PULSE 88; RESP 16; O2SAT 97
--- NOTE | 2017-01-22 11:21 | NUR ---
Spoke with Carmita Rivas CM at Center and they have issued formal denial to family as patient is in need of fdc care. Updated INDEX EDITOR
--- NOTE | 2017-01-22 13:37 | NUR ---
Case Management: Per family's request, stopped by pt's room at 12:05 pm to speak with Bill, pt's son-in-law and dtr-in-law, as well as Tona Dobson, pt's spouse. When asked what questions they had re: HERNANDEZ and Medicare Part D info, Tona Dobson stated she had contacted [employer], and already obtained clarification re: OBS status and coverage. Discussed with family that it is likely continued stay coverage will cease soon. Discussed daily rate for private pay inpatient. They stated taking pt home with 24 hour care is not an option, but understand that paying privately to keep patient in the hospital is a costly option. They were appreciative of obtaining coverage information. AGUSTÍN Goodrich RN
--- NOTE | 2017-01-22 14:22 | NUR ---
Social Work-continued d/c planning: Data:EMR Reviewed. Pt is on day 3 of hospitalization for dementia per H&P. JOHN continues to look for placement for pt. JOHN informed that [facility]. JOHN spoke with pt's son in law Jan, Daughter in law Kimberlyn, and Tona Dobson to further discuss discharge planning, SW role explained. Family aware that [facility] has declined pt because they had spoken with them. Family had wanted SW to explore 1. [facility] 2. [facility] 3. [facility]. SW called all three facilities and spoke with admissions. SW discussed Respite options with the three facilities and obtained prices. [facility] $225.00 a day, [facility] $150.00 a day, and [facility] $4200 for a month. JOHN spoke with family again and provided information. Family states they want a facility where pt can transition over to Medicaid quicker that 2 years. JOHN explained most memory care facilities do make you pay privately for 2 years and then you can transition over. JOHN discussed option of respite at memory care where pt could go while family continues to work on long term care administrator placement. Family agreeable to this and referrals sent to all three facilities. SW faxed referral to [facility], [facility] and [facility] for review. AGUSTÍN RN to meet with pt and family. SW will continue to follow. Assessment:pt will need memory care placement. Plan: Referrals sent to [facility], [facility], and [facility] for respite private pay. JOHN will continue to follow. SOPHIE Morgan
--- NOTE | 2017-01-22 14:41 | NUR ---
Social Work received a call back from [facility]. Zeynep states she and RN Kelly can be in tomorrow morning at 1030 to evaluate pt for respite say. SW updated son in law Jan and they will plan on being there tomorrow morning. Dinah Daniels MSW
--- NOTE | 2017-01-22 16:26 | NUR ---
JOHN spoke with Sallie at [facility], Rolanda RN can be in tomorrow at 0800 to complete assessment and then follow up with family. JOHN updated Jan son in law he is agreeable to plan. SOPHIE Morgan
[2017-01-22 17:34] VITALS: BP 150/72; PULSE 71; RESP 16; O2SAT 97
--- NOTE | 2017-01-22 18:16 | NUR ---
Mentation- Patient has been up in chair for meals and ambulating with standby assist to bathroom. Has been very pleasant and cooperative with care. Tolerating diet and fluids. Patient's family here today for several hours. Denies discomfort when asked.
--- NOTE | 2017-01-22 18:25 | PCM.PNMED ---
Subjective Date of Service Jan 22, 2017 Subjective Patient was seen and examined at bedside today. Patient is currently demented but is alert to self and denies any current chest pain, shortness of breath, nausea, vomiting, diarrhea. Overnight events: None Exam Vital Signs Vital Sign - Last Date Time Temp Pulse Resp B/P Pulse Ox O2 Delivery O2 Flow Rate FiO2 01/22/17 17:34 36.7 71 16 150/72 97 01/22/17 10:59 Room Air Intake and Output 01/21/17 01/21/17 01/22/17 Cumulative From/Thru 15:00 23:00 07:00 01/18/17 23:59 - 01/22/17 06:43 Intake Total 900 ml 0 ml 4518 ml Output Total 450 ml 625 ml 5050 ml Balance 450 ml -625 ml -532 ml Intake Oral 900 ml 0 ml 3990 ml IV Total 0 ml 528 ml Output Urine Total 450 ml 625 ml 5050 ml # Voids 2 4 8 # Bowel Movements 1 3 Exam Physical Exam: GEN: Patient was awake, alert, responding appropriately to questions HEENT: Pupils equal round and reactive to light, extraocular eye muscles intact , Neck soft supple, trachea midline, nomocephalic/atraumatic CV: +S1/S2, irregular rate, no murmurs auscultated Respiratory: CTAB, no wheezes, rales, rhonchi GI: +bowel sounds x4, soft, compressible, nontender to palpation EXT: no clubbing, cyanosis, edema lower extremities mild tenderness to palpation Neuro: Cranial nerves II-XII grossly intact Psych: mood and affect were appropriate IVs and Medications Medications Reviewed: Medications were reviewed in detail Lab and Diagnostics Result Diagram: 01/19/1711401/19/17114 X-Rays, CTs and MRIs CT of head is pending Assessment & Plan This is an 89-year-old male with history diabetes 2, alcoholism, dementia, and hypothyroidism who presented to the ED with family secondary to suicidal ideation. Patient was admitted to the hospital secondary to possible danger to himself and secondary to severe dementia possibly Wernicke's encephalopathy. Altered mental status secondary to progressive worsening cognitive dysfunction -Continue thiamine (patient is a known alcoholic) low suspicion for Wernicke's -Urine tox screen negative -Donepezil 10 mg daily at bedtime as per recommendation by psychiatry -Increase Seroquel to 50 mg daily at bedtime as per recommendation by psychiatry -We will consider adding Namenda 5 mg daily as recommended by psychiatry if the patient continues to show behavioral problems -Currently working on dementia placement for patient Diabetes type II -Recent reported hemoglobin A1c of 11 -Continue insulin sliding scale and 10 units of insulin daily Anemia normocytic normochromic, chronicity unknown, POA, -We will continue home iron 325 mg capsules daily Hypothyroidism, chronic, -We will continue levothyroxine 175 g daily GERD, chronic, -We will continue omeprazole 20 mg daily Asthma, chronic -We will continue albuterol 8.5 g p metered-dose inhaler BPH -Continue tamsulosin 0.4 mg daily -And T new finasteride 5 mg daily Disposition: Patient is currently clinically stable and his dementia seems to be under control and the patient does seem well-behaved. Currently we are awaiting placement for the patient as he will need to go to a dementia facility. VTE Prophylaxis: Sub-Q Enoxaparin Resuscitation Status: CPR: Attempt Resuscitation Jillian Carney DO Jan 22, 2017 18:25
[2017-01-22 20:54] VITALS: BP 139/80; PULSE 80; RESP 16; O2SAT 100
[2017-01-22 22:00] VITALS: BP 178/87; PULSE 59; RESP 17; O2SAT 99
[2017-01-23 02:30] VITALS: BP 158/69; PULSE 57; RESP 16; O2SAT 98
--- NOTE | 2017-01-23 04:31 | NUR ---
Shift Note Assumed pt care at 1900, pt noted polyuria throughought night, up multiple times with 50-100 mls urine, pt with baseline confusion, redirectable, call light in reach, placed close to nurses station, has romeo bed alarm on for safety.
[2017-01-23 07:04] LABS: Mean Corpuscular Hemoglobin 30.7 pg (27.0-35.0); Mean Corpuscular Volume 89.9 fL (81-100)
[2017-01-23] MEDS: Insulin LISPRO 300 Unit/3 mL Inj SUBQ SCH ×4 (08:13→21:57)
[2017-01-23 08:45] VITALS: BP 146/71; PULSE 38; RESP 16; O2SAT 97
[2017-01-23] MEDS: Insulin GLARgine 100 Unit/mL Syringe SUBQ SCH (09:55)
--- NOTE | 2017-01-23 10:58 | NUR ---
[facility] has declined pt. Dinah Daniels,PRODUCE SERVICE TEAM MEMBER
[2017-01-23 11:49] VITALS: BP 104/62; PULSE 73; RESP 16; O2SAT 97
--- NOTE | 2017-01-23 12:10 | PCM.PNMED ---
Subjective Date of Service Jan 23, 2017 Subjective Patient was seen and examined at bedside today. Patient denies any chest pain, shortness of breath, nausea, vomiting, diarrhea. Overnight events: None Exam Vital Signs Vital Sign - Last Date Time Temp Pulse Resp B/P Pulse Ox O2 Delivery O2 Flow Rate FiO2 01/23/17 11:49 36.4 73 16 104/62 97 Room Air Intake and Output 01/22/17 01/22/17 01/23/17 Cumulative From/Thru 15:00 23:00 07:00 01/18/17 23:59 - 01/23/17 04:20 Intake Total 960 ml 350 ml 5828 ml Output Total 200 ml 550 ml 5800 ml Balance 760 ml -200 ml 28 ml Intake Oral 960 ml 350 ml 5300 ml IV Total 528 ml Output Urine Total 200 ml 550 ml 5800 ml # Voids 4 12 # Bowel Movements 0 3 Exam Physical Exam: GEN: Patient was awake, alert to self, responding appropriately to questions HEENT: Pupils equal round and reactive to light, extraocular eye muscles intact , Neck soft supple, trachea midline, nomocephalic/atraumatic CV: +S1/S2, irregular rate and rhythm, systolic murmur auscultated Respiratory: CTAB, no wheezes, rales, rhonchi GI: +bowel sounds x4, soft, compressible, nontender to palpation EXT: no clubbing, cyanosis, edema, feet bilateral tenderness to palpation chronic and at baseline Neuro: Cranial nerves II-XII grossly intact Psych: mood and affect were appropriate IVs and Medications Medications Reviewed: Medications were reviewed in detail Lab and Diagnostics Result Diagram: 01/23/17 0550 01/23/17 0550 X-Rays, CTs and MRIs CT of head is pending Assessment & Plan An 89-year-old male with history diabetes 2, alcoholism, dementia, and hypothyroidism who presented to the ED with family secondary to suicidal ideation. Patient was admitted to the hospital secondary to possible danger to himself and secondary to severe dementia possibly Wernicke's encephalopathy. Altered mental status secondary to progressive worsening cognitive dysfunction -Continue thiamine (patient is a known alcoholic) low suspicion for Wernicke's -Urine tox screen negative -Donepezil 10 mg daily at bedtime as per recommendation by psychiatry -Continue Seroquel to 50 mg daily at bedtime as per recommendation by psychiatry -We will consider adding Namenda 5 mg daily as recommended by psychiatry if the patient continues to show behavioral problems however the patient is currently stable and unlikely that we will need to add this medication -Currently working on dementia placement for patient Diabetes type II -Recent reported hemoglobin A1c of 11 -Current glucose is 175 which seems to be improving -Continue insulin sliding scale and 10 units of insulin daily -Restart home dose of metformin 500 mg twice a day Hypertension -Blood pressure elevated at 146/71 with pressures going as high as 178/87 -Start lisinopril 20 by mouth daily He subsequently ordered the unit at [facility] is 11 on amoxicillin Anemia normocytic normochromic, chronicity unknown, POA, -We will continue home iron 325 mg capsules daily Hypothyroidism, chronic, -We will continue levothyroxine 175 g daily GERD, chronic, -We will continue omeprazole 20 mg daily Asthma, chronic -We will continue albuterol 8.5 g p metered-dose inhaler BPH -Continue tamsulosin 0.4 mg daily -And T new finasteride 5 mg daily Disposition: Patient is currently clinically stable and his dementia seems to be under control and the patient does seem well-behaved. Currently we are awaiting placement for the patient as he will need to go to a dementia facility. VTE Prophylaxis: Sub-Q Enoxaparin Resuscitation Status: CPR: Attempt Resuscitation Jillian Carney DO Jan 23, 2017 12:10
--- NOTE | 2017-01-23 13:24 | NUR ---
Placement Patient appears to be pleasant and compliant with care this shift. No behavior noted. Ambulating with cane, 1 person standby assist for safety. Eating and drinking well. [facility] and [facility] came to assess patient. Awaiting family to decide which facility to discharge to. [facility] was also contacted and will accept assessment done by [facility] since they're sister [facility]. Assessment paper work fax to Mil[facility] for review. Will continue to monitor and keep patient comfortable at this time.
--- NOTE | 2017-01-23 16:33 | NUR ---
Social Work-readiness for discharge: Data:EMR Reviewed. Pt is on day 4 of hospitalization for Dementia per h&P. Pt is medically stable. SW spoke with the [facility] [phone] and they are able to accept pt tomorrow. Family was assessed by both [facility] and [facility]. [facility] can accept also, but [place] [facility] [place] can accomadate the medicaid switch quicker than the 2 years private pay. [facility] sent family to [place] [facility] [place]. [place] [facility] confirms that family is ready for pt to admit tomorrow and would like to pay privately for cabualnce. SW called son in Law Jan and left message confirming plan. UR specialist to get admission orders from [facility] and have MD fill them out. MD aware of discharge tomorrow. SW will continue to follow. Assessment: Pt who would benefit from memory care. Plan:Pt to discharge to [facility] tomorrow. Family to pay privately for placement and also cabulance. aware of discharge tomorrow. JOHN will continue to follow SOPHIE Morgan
[2017-01-23 19:40] VITALS: BP 124/54; PULSE 59; RESP 16; O2SAT 99
[2017-01-24 04:20] VITALS: BP 132/73; PULSE 65; RESP 16; O2SAT 65
--- NOTE | 2017-01-24 05:03 | NUR ---
Shift Note Assumed pt care at 1900, pt with baseline confusion, redirectable, pt has no behaviors throughout night, on romeo and bed alarm for safety, call light in reach.
[2017-01-24] MEDS ORDERED: LISI-567 PO (07:14)
[2017-01-24] MEDS ORDERED: INSLIS SUBQ (07:14)
[2017-01-24] MEDS ORDERED: INSU100V7 SUBQ (07:14)
[2017-01-24] MEDS ORDERED: Loratadine PO (07:14)
--- NOTE | 2017-01-24 07:17 | PCM.DIMED ---
Discharge Instructions Date of Service Jan 24, 2017 Dates of Hospitalization Jan 19, 2017 at 04:04 Discharge Diagnosis Discharge Diagnosis Worsening dementia Diabetes II Hypertension Hypothyroidism GERT Asthma BPH Diet No restrictions Activity No restrictions (As tolerated) Call your provider Fever or Chills, Shortness of breath, Chest pain, Weakness (unilateral) Patient Instructions Follow-up with PCP in: 1 week (Please follow up with the PCP within in week) Jillian Carney DO Jan 24, 2017 07:17
[2017-01-24] MEDS ORDERED: QUET25TA73 PO (07:23)
[2017-01-24] MEDS: Insulin LISPRO 300 Unit/3 mL Inj SUBQ SCH ×2 (08:00→12:16)
[2017-01-24 08:30] VITALS: BP 108/54; PULSE 73; RESP 20; O2SAT 99
[2017-01-24] MEDS: Insulin GLARgine 100 Unit/mL Syringe SUBQ SCH (08:35)
--- NOTE | 2017-01-24 10:25 | NUR ---
[facility] will transport patient to [facility] [facility] [employer] is scheduled of 1600. Updated TECHNICAL WRITER and she gave Jan (Son in law) phone number for payment. Faxed orders to [facility] [place] [phone] Attn: Chela Wheeler Updated TECHNICAL WRITER Addendum: 01/24/17 at 1209 by GLADIS CARRIZALES CM Called and spoke with Elizabeth at [facility] and she received all order just is needing actual signature on discharge papers for pharmacy. updated her on transport time as well. Updated TECHNICAL WRITER
--- NOTE | 2017-01-24 10:56 | NUR ---
Social Work-Discharge: Data:EMR Reviewed. Pt is on day 5 of hospitalization for Dementia per H&P. Pt is medically stable. SW spoke with patient's son-in-Law Jan and notified him that the patient was discharging today. Jan voiced understanding and stated that he would pay for Cabulance. Patient is set up to leave at 4pm. via [facility] and be transported to the [facility] [phone]. UR specialist will fax all documents needed to [facility]. SW will continue to follow. Plan:Pt to discharge to [facility]. Family to pay privately for placement and also cabulance via [facility]. Transport will pick patient up at 4:00 p.m. SW will continue to follow Elizabeth Borges LMSW, JUSTICE
--- NOTE | 2017-01-24 11:10 | PCM.DC.MED ---
Discharge Summary Date of Service Jan 24, 2017 Dates of Hospitalization Date of Hospital Admission Jan 19, 2017 at 04:04 Date of Discharge: Jan 24, 2017 Providers: Admitting Physician: Brian Lira MD Primary Care Physician: Gunner Segura DO Attending Physician: Brian Lira MD Diagnosis at Time of Discharge Diagnosis at Time of Discharge Worsening dementia Diabetes II Hypertension Hypothyroidism GERT Asthma BPH Procedures XRay, CTs & MRIs CT of head is pending Brief History This is a pleasant 89 Y/O M with Hx Type II diabetes on Lantus, regular insulin , and metformin his most recent A1c was 11, and remote hx of alcoholism since he was a teenager, quit EtOH 26 years ago after being hospitalized for acute liver failure and pancreatitis resulting in his diabetes. Patient reportedly drank for over 40 years, and started when he was a teenager. Patient has history of hypothyroidism. He presented to the ED with reports of suicidal ideations by his family who accompanied him today. Stated symptoms including paranoia, and angry verbal outbursts. The patient's , daughter, and son-in- law are present in the room at time of exam and were primary historians. The patient's reports the patient has been talking about killing himself. Patient's reports that she identified his dementia approximate 6 months ago when she found him on the bathroom floor spray painting his stools. Patient 's family states that the patient was afraid that someone was going to steal his stools. He reportedly has been saying at home that he will stop eating. Patient's reports that the patient has angry outbursts that are short-lived , but denies any history of physical abusiveness. Patient has never threatened others. The patient has access to knives at his bedside which is for protection. There are reportedly no firearms in the home. The patient performs his own regular insulin injections. For blood glucose greater than 300 he injects 5 units of regular insulin. His watches him inject his insulin. His is responsible for bringing him his Lantus at night. The son- in-law is concerned that the patient might use his insulin injections to kill himself. Patient is paranoid about someone trying to kill him. Patient's states she can no longer properly care for patient at home. He himself was able to answer certain specific questioning although is somewhat tangential in his answers. Patient was able to follow simple directions and commands during the physical exam. Mini-Mental status exam done at bedside was 21 out of 30 with points off for the year, season, date, as well as points off for serial sevens. Of note patient has had loose stools for the past 2 days. Family members denied fever, cough, recent illnesses, nausea, vomiting, abdominal pain , constipation, focal neurological signs, headache, syncope, slurred speech, vision changes. Vital signs in the ED: Temperature 36.5, pulse 72, respiratory rate 24, blood pressure 140/60 with a map of 86, pulse ox 97. Hemogram showed white blood cell count 7.8, 60.2% neutrophils, H/H 11.3/32.8, platelet count 235, Chemistry panel showed: Glucose 221, sodium 134, potassium 4.0, chloride 99, carbon dioxide 22, BUN 23, creatinine 0.88, calcium 9.1, AST/ALT 16/18, alkaline phosphatase 91, albumin 4.2, TSH 0.808 UA showed bacteria otherwise negative Urine toxicology showed acetaminophen 15, EtOH 10 which is consistent with a blood alcohol level of 0.08%. In the ED, CT head was performed, and results are pending. Urine tox in the ED was negative Hospital Course An 89-year-old male with history diabetes 2, alcoholism, dementia, and hypothyroidism who presented to the ED with family secondary to suicidal ideation. Patient was admitted to the hospital secondary to possible danger to himself and secondary to severe dementia possibly Wernicke's encephalopathy. Patient had worsening dementia and was seen my psych. Psych recommended increasing the patient to Seroquel 50mg Qhs and this has worked very well for the patient. They also suggested that the patient could have Namenda 5mg if behavioral problems still persisted; however, this has not been needed and the patient has been very pleasant and manageable with the increase of 50mg of Seroquel. The patient is being discharged in stable condition Please see below for full hospital course while admitted: Altered mental status secondary to progressive worsening cognitive dysfunction -Continue thiamine (patient is a known alcoholic) low suspicion for Wernicke's -Urine tox screen negative -Donepezil 10 mg daily at bedtime as per recommendation by psychiatry -Continue Seroquel to 50 mg daily at bedtime as per recommendation by psychiatry -We will consider adding Namenda 5 mg daily as recommended by psychiatry if the patient continues to show behavioral problems however the patient is currently stable and unlikely that we will need to add this medication -Currently working on dementia placement for patient Diabetes type II -Recent reported hemoglobin A1c of 11 -Current glucose is 175 which seems to be improving -Continue insulin sliding scale and 10 units of insulin daily -Restart home dose of metformin 500 mg twice a day Hypertension -Blood pressure elevated at 146/71 with pressures going as high as 178/87 -decrease lisinopril to 10 by mouth daily He subsequently ordered the unit at [facility] is 11 on amoxicillin Anemia normocytic normochromic, chronicity unknown, POA, -We will continue home iron 325 mg capsules daily Hypothyroidism, chronic, -We will continue levothyroxine 175 g daily GERD, chronic, -We will continue omeprazole 20 mg daily Asthma, chronic -We will continue albuterol 8.5 g p metered-dose inhaler BPH -Continue tamsulosin 0.4 mg daily -And T new finasteride 5 mg daily Exam Vital Signs (Last) Date Time Temp Pulse Resp B/P Pulse Ox O2 Delivery O2 Flow Rate FiO2 01/24/17 04:20 36.9 65 16 132/73 65 Room Air Exam Physical Exam: GEN: Patient was awake, alert to self, responding appropriately to questions HEENT: Pupils equal round and reactive to light, extraocular eye muscles intact , Neck soft supple, trachea midline, nomocephalic/atraumatic CV: +S1/S2, irregular rate and rhythm, systolic murmur auscultated Respiratory: CTAB, no wheezes, rales, rhonchi GI: +bowel sounds x4, soft, compressible, nontender to palpation EXT: no clubbing, cyanosis, edema, feet bilateral tenderness to palpation chronic and at baseline Neuro: Cranial nerves II-XII grossly intact Psych: mood and affect were appropriate Test 01/19/17 01:00 01/19/17 01:15 01/23/17 05:50 Urine Color Yellow (YELLOW) Urine Appearance Clear (CLEAR,HAZY) Urine pH 5.5 (5.0-8.0) Urine Specific [place] 1.020 (1.003-1.035) Urine Protein Negativemg/dL (NEG,TRACE) Urine Glucose (UA) Negativemg/dL (NEGATIVE) Urine Ketones Negativemg/dL (NEGATIVE) Urine Occult Blood Negative (NEGATIVE) Urine Nitrite Negative (NEGATIVE) Urine Bilirubin Negative (NEGATIVE) Urine Urobilinogen Normalmg/dL (NORMAL) Urine Leukocyte Esterase Negative (NEGATIVE) Urine RBC 0-2/hpf (0-2) Urine WBC 0-5/hpf (0-5) Urine Epithelial Cells Occasional/hpf (NONE-MOD) Urine Crystals None seen (NONE SEEN) Urine Bacteria Few/hpf (NONE-FEW) Urine Hyaline Casts Rare/lpf (NONE) Urine Granular Casts None seen (NONE SEEN) Urine Waxy Casts None seen (NONE SEEN) Urine Red Blood Cell Casts None seen (NONE SEEN) Urine White Blood Cell Casts None seen (NONE SEEN) Urine Mucus None seen (None Seen) Urine Trichomonas None seen (NONE SEEN) Urine Yeast None (NONE SEEN) Urinalysis Comment None Urine Culture Reflexed Not indicated Hold Urine Received (Received) Neutrophils (%) (Auto) 60.2% (40-74) Lymphocytes (%) (Auto) 26.3% (14-46) Monocytes (%) (Auto) 9.1% (4-12) Eosinophils (%) (Auto) 3.8% (0-5) Basophils (%) (Auto) 0.5% (0-3) Vitamin B12 Level 722pg/mL (211-946) Thyroid Stimulating Hormone (TSH) 0.808uIU/mL (0.450-4.500) Hold Concepcion Top Tube Received (Received) Acetaminophen Level 15.0ug/mL Rx (10-25) Alcohols 10mg/dL (0-10) Rapid Plasma Reagin Non reactive (Non Reactive) White Blood Count 6.8th/mm3 (3.8-10.1) Red Blood Count 3.58mil/mm3 (4.40-5.80) Hemoglobin 11.0g/dL (13.8-17.2) Hematocrit 32.2% (41.0-50.0) Mean Corpuscular Volume 89.9fL (81-100) Mean Corpuscular Hemoglobin 30.7pg (27.0-35.0) Mean Corpuscular Hemoglobin Concent 34.2% (32.0-37.0) Red Cell Distribution Width 12.9% (12.3-15.4) Platelet Count 225bil/L (150-400) Sodium Level 139mEq/L (134-144) Potassium Level 4.4mEq/L (3.5-5.2) Chloride Level 102mEq/L (97-108) Carbon Dioxide Level 22mmol/L (18-29) Blood Urea Nitrogen 20mg/dL (8-27) Creatinine 0.98mg/dL (0.76-1.27) Estimat Glomerular Filtration Rate 77mL/min (>59) Glucose Level 175mg/dL (60-99) Calcium Level 9.2mg/dL (8.5-10.1) Total Bilirubin 0.4mg/dL (0.0-1.2) Aspartate Amino Transf (AST/SGOT) 16U/L (0-50) Alanine Aminotransferase (ALT/SGPT) 18U/L (0-44) Alkaline Phosphatase 89U/L (25-160) Total Protein 6.3g/dL (6.4-8.4) Albumin 4.1g/dL (3.4-5.0) Discharge Medications Discharge Medications Albuterol HFA (Proair HFA) 8.5 Gm Hfa.aer.ad 2 PUFFS INHALATION Q4H (Reported) Aspirin (Aspirin) 81 Mg Tablet 81 MG PO DAILY (Reported) Cholecalciferol (Vitamin D3) (Vitamin D3) 1,000 Unit Tab.chew 1,000 UNIT PO DAILY (Reported) Donepezil (Aricept) 5 Mg Tablet 5 MG PO HS (Reported) Ferrous Sulfate (Iron) 325 Mg Capsule.er 325 MG PO DAILY (Reported) Finasteride (Finasteride) 5 Mg Tablet 5 MG PO DAILY (Reported) Insulin Glargine (Lantus U100 Insulin Vial) 100 Unit/Ml Vial 10 UNIT SUBQ DAILY Prescribed by: LUIS CARNEY, Insulin Human Lispro (HumaLOG U100 Insulin Vial) 100 Unit/Ml Unit 0 UNIT SUBQ WMHS Check blood sugars before meals and at bedtime. Use correction factor only before meals. Blood Sugar Lispro Correction: <151, 0 units; 151-175, 1 unit; 176-200, 2 units; 201-225, 3 units; 226-250, 4 units; 251-275, 5 units; 276-300 , 6 units; 301-325, 7 units; 326-350, 8 units; 351-375, 9 units; 376-400, 10 units; >400, 12 units. Prescribed by: LUIS CARNEY DO Levothyroxine (Levothyroxine) 175 Mcg Tablet 175 MCG PO DAILY (Reported) Lisinopril (Lisinopril) 20 Mg Tablet 10 MG PO DAILY Prescribed by: LUIS CARNEY DO Magnesium Chloride (Slow-Mag) 64 Mg Tablet 64 MG PO DAILY (Reported) Metformin ER (Metformin ER) 500 Mg Tablet 500 MG PO DAILY (Reported) Omeprazole (Omeprazole) 20 Mg Capsule.dr 20 MG PO DAILY (Reported) Quetiapine Fumarate (Quetiapine Fumarate) 25 Mg Tablet 50 MG PO HS Prescribed by: LUIS CARNEY DO Tamsulosin (Flomax) 0.4 Mg Capsule 0.4 MG PO DAILY (Reported) As needed ([Loratadine]) 10 MG TABLET 10 MG PO DAILY PRN PRN CONGESTION Prescribed by: LUIS CARNEY DO Ibuprofen (Ibuprofen) 200 Mg Capsule 200 MG PO QID PRN PRN For Pain (Reported) Followup Plan Discharge Diet: Other (Patient has a severe aversion to chicken and poultry) Discharge Activity: No restrictions (As tolerated) Follow-up with PCP in: 1 week (Please follow up with the PCP within in week) Time spent greater than 35minutes Luis Carney DO Jan 24, 2017 07:22
[2017-01-24 15:00] VITALS: BP 121/63; PULSE 86; RESP 20; O2SAT 94
--- NOTE | 2017-01-24 17:10 | NUR ---
Discharge Patient discharge to [facility] via [facility], all belongings given. Facility contacted earlier, report given to ED, Ebony Wheeler. Patient denies any pain or any discomfort upon discharge.
== END 2017-01-24 17:00 | disposition home or self-care (01) ==
LOC: SED 23:58 → MOC 01-19 04:04
PROVIDERS: ADMIT Family Medicine; ATTEND Family Medicine
DX: R41.82 Altered mental status, unspecified (principal); R45.851 Suicidal ideations; F03.91 Unspecified dementia, unspecified severity, with behavioral disturbance; E11.65 Type 2 diabetes mellitus with hyperglycemia; I10 Essential (primary) hypertension; E03.9 Hypothyroidism, unspecified; K21.9 Gastro-esophageal reflux disease without esophagitis; J45.909 Unspecified asthma, uncomplicated; N40.0 Benign prostatic hyperplasia without lower urinary tract symptoms; F10.21 Alcohol dependence, in remission; M54.9 Dorsalgia, unspecified; M19.90 Unspecified osteoarthritis, unspecified site; M51.26 Other intervertebral disc displacement, lumbar region; D64.9 Anemia, unspecified; F01.51 Vascular dementia, unspecified severity, with behavioral disturbance; Z79.84 Long term (current) use of oral hypoglycemic drugs; Z79.4 Long term (current) use of insulin; Z79.51 Long term (current) use of inhaled steroids; Z79.82 Long term (current) use of aspirin
CPT/HCPCS: 36415; 70450; 80053; 81000; 82607; 84443; 85025; 85027; 86592; 93005; 96372; 96374; 96376; 97161; 99285; G0378; G0480; J1650; J1815